=== PATIENT | male | born 1960 | race Caucasian/White ===

== ENCOUNTER 2020-12-03 14:29 | Emergency (ER) | payer MEDICARE ==
[2020-12-03 16:55] LABS: #Basophils 0.1 thou/uL (0.0-0.2); #Eosinphils 0.1 thou/uL (0.0-0.7); #Lymphocytes 1.2 thou/uL (1.20-3.40); #Monocytes 0.4 thou/uL (0.11-0.59); #Neutrophils 3.8 thou/uL (1.40-6.50); %Basophils 0.9 % (0.0-1.0); %Eosinophils 1.2 % (0.0-10.0); %Monocytes 6.6 % (0.0-10.0); %Neutrophils 70.3 % (42.0-75.0); Hemoglobin 13.8 g/dL (14.0-18.0); Mean Corpuscular HGB CONC 34.9 g/dL (32.0-36.0); Mean Corpuscular Hemoglobin 32.2 pg (27.0-31.0); Mean Corpuscular Volume 92.1 fL (78.0-98.0); Platelet Count 127 thou/uL (130-400); RBC Distribution Width 11.8 % (11.5-14.5); Red Blood Cell (RBC) Count 4.29 mill/uL (4.70-6.10); White Blood Cell (WBC) Count 5.5 thou/uL (4.8-10.8)
[2020-12-03] MEDS ORDERED: HYDROmorphone 0.5 MG/0.5 ML SYRINGE ONE (17:02)
[2020-12-03] MEDS ORDERED: Furosemide 40 MG/4 ML VIAL ONE (17:02)
[2020-12-03] MEDS ORDERED: Ondansetron PF 4 MG/2 ML Vial ONE (17:02)
--- NOTE | 2020-12-03 17:14 | RAD ---
XR Chest 1 View Portable HISTORY: Chest pain COMPARISON: None FINDINGS: The heart size is normal. The lungs are well expanded without focal areas of consolidation, pneumothorax or pleural effusions. IMPRESSION: No radiographic evidence of acute cardiopulmonary process.
[2020-12-03 17:15] LABS: ALT (SGPT) 19 U/L (8-55); AST (SGOT) 19 U/L (5-34); Albumin 3.8 g/dL (3.5-5.0); Alkaline Phosphatase 74 U/L (40-110); Anion Gap 15 mmol/L (10-20); BUN (Urea Nitrogen) 10 mg/dL (8.4-25.7); Bilirubin, Total 0.3 mg/dL (0.2-1.2); CK (CPK) 87 U/L (30-200); CRP (Inflammatory) Less than 0.50 mg/dL (= or < 0.5); Calc. Creatinine Clearance 0 mL/min (70-130); Calcium 8.7 mg/dL (7.8-10.44); Carbon Dioxide 23 mmol/L (22-29); Chloride 108 mmol/L (98-107); Globulin 2.7 g/dL (2.4-3.5); Glucose 105 mg/dL (70-105); Lipase 38 U/L (8-78); Potassium 4.1 mmol/L (3.5-5.1); Protein, Total 6.5 g/dL (6.0-8.3); Sodium 142 mmol/L (136-145)
--- NOTE | 2020-12-03 17:16 | RAD ---
LUMBAR SPINE TWO VIEWS: 12/03/20 HISTORY: Low back pain. FINDINGS: Multilevel degenerative changes are present. There is mild levoscoliosis. No acute fracture, subluxat ion or bony destruction is seen. IMPRESSION: Lumbar spondylosis. POS: OFF
--- NOTE | 2020-12-03 17:17 | RAD ---
LEFT HIP TWO VIEWS: 12/03/20 HISTORY: Left hip pain. FINDINGS/IMPRESSION: Degenerative changes are present. No fracture, dislocation or bony destruction identified. POS: OFF
[2020-12-03] MEDS ORDERED: Morphine 4 MG/ML VIAL ONE (17:18)
[2020-12-03 17:42] LABS: Bilirubin Negative (Negative); Blood, Urine Trace (Negative); Clarity Clear (Clear); Glucose, Urine (Dipstick) Negative (Negative); Ketone, Urine Negative (Negative); Leukocyte Negative (Negative); Nitrite Negative (Negative); Protein, Urine (Dipstick) Negative (Neg-Trace); Specific Gravity, Urine 1.015 (1.005-1.030); Urobilinogen 0.2 mg/dL (Less than 2); pH, Urine 8.5 (5.0-9.0)
[2020-12-03 17:44] LABS: Amphetamine Not Detected (NotDetected); Barbiturates Screen Not Detected (NotDetected); Benzodiazepine Screen Not Detected (NotDetected); Cocaine Metabolite Screen Not Detected (NotDetected); Medtox Control Line Valid? VALID (VALID); Methadone Not Detected (NotDetected); Methamphetamine Not Detected (NotDetected); Opiate Screen Not Detected (NotDetected); Oxycodone Screen Not Detected (NotDetected); Phencyclidine (PCP) Not Detected (NotDetected); THC/Cannabinoid Screen Not Detected (NotDetected); Tricyclic Screen Not Detected (NotDetected)
[2020-12-03 17:46] LABS: Bacteria/HPF Rare-Few HPF (None Seen); RBC/HPF 0-3 HPF (0-3); Squamous Epithelial 0-3 HPF (0-3); WBC/HPF 0-3 HPF (0-3)
[2020-12-03] MEDS ORDERED: HYDROcodone/Acetaminophen 10/325 mg Tablet ONE (18:54)
--- NOTE | 2020-12-06 07:25 | RAD ---
LEFT THUMB THREE VIEWS: 12/03/20 HISTORY: Swelling and pain in the left thumb. FINDINGS/IMPRESSION: No acute fracture, dislocation or bony destruction is seen. POS: OFF
== END 2020-12-03 19:21 | disposition home or self-care (01) ==
LOC: MADERS 14:29
DX: M54.40 Lumbago with sciatica, unspecified side (principal); R60.0 Localized edema; F17.290 Nicotine dependence, other tobacco product, uncomplicated; Z79.899 Other long term (current) drug therapy
CPT/HCPCS: 71045; 72100; 80053; 80306; 81003; 81015; 82550; 83690; 84484; 85025; 86140; 93005; 96374; 96375; J1170; J1940; J2270; J2405